=== PATIENT | female | born 1960 | race Caucasian/White ===

== ENCOUNTER → 2023-08-15 16:47 | Outpatient (REF) | payer BC, SELFPAY | LOC: HWWDC 16:47 | PROVIDERS: ATTENDING PHYSICIAN Family Medicine | DX: Z12.31 Encounter for screening mammogram for malignant neoplasm of breast (principal) | CPT/HCPCS: 77063; 77067 ==

== ENCOUNTER 2023-08-21 10:10 | Emergency (ER) | payer BC, SELFPAY ==
[2023-08-21 10:18] VITALS: BP 123/87
--- NOTE | 2023-08-21 15:00 | ED.GENMED ---
History of Present Illness
General
Chief Complaint: Back Pain
Source: patient and spouse
Time Seen by Provider: 08/21/23 10:58
Travel History
Have you had any contact with someone who has COVID-19?: No
Do you have any symptoms of coronavirus? Fever > 100 degrees, chills, cough, shortness of breath, sore throat, loss of taste or smell, muscle aches, or headache?: No
History of Present Illness
History of Present Illness:
This is a 63yo male who present with persistent low back pain. Patient has had lumbar fusions in the past she was told that the future will become more unstable. Patient states she has had pain in the upper buttocks down the top of her right leg.
the pt did have an epidural by DR Damon and is scheduled for an MR on the . She reports that her pain medicine really has not touched her pain. She has been a little less mobile. In addition she complains of some swelling in both legs. She
reports mild leg redness worse on the left. No numbness or tingling. No incontinence. No fevers. a few weeks back she did have a medrol dose pack and it seemed to help briefly
Past History
Past History
ED Past Medical History: Hypercholesterolemia, Hypothyroidism, Other (Migraine headaches, cervical and lumbar DJD. 'skin disorder') and Other (chronic low back and R hip pain)
ED Past Surgical History: (X3), Orthopedic (Cervical fusion, lumbar laminectomy) and Other ('Sushil surgery 2017)
Social History
Tobacco: Non-smoker
Alcohol: None
Drug: None
Personal:
Living: with family
Employment: Employed
Family History
Family History: Other (Reviewed and Noncontributory )
Phy Exam
Physical Exam
Physical Exam:
CONSTITUTIONAL Patient alert and oriented to person, place and time. Well-appearing. Vital signs reviewed.
HEAD atraumatic, normocephalic.
EYES eyelids normal to inspection, Extraocular muscles intact, Conjunctiva normal, Sclera normal.
NECK normal range of motion, Trachea midline, no jugular venous distention.
RESPIRATORY CHEST No respiratory distress noted, Chest expansion equal
BACK normal inspection, healed midline lower lumbar scar. moderate TTP about lumbar spine
UPPER EXTREMITY range of motion normal, Motor strength normal, no cyanosis, no edema.
LOWER EXTREMITY range of motion normal, Motor strength normal, no cyanosis, mild bilateral edema noted. No warmth noted to the anterior left lower extremity. Dorsalis pedis pulses are normal and bounding bilaterally
NEURO Speech normal, No focal motor deficits, Sean coma scale 15, Memory normal, Cranial Nerves intact to screening exam.
SKIN skin warm, dry, and normal in color.
PSYCHIATRIC patient oriented to person place and time, Normal affect.
Course
Orders/Labs/Results
Orders:
Orders
08/21/23 11:42
CT Lumbar Spine W/o Iv Contras Urgent
Comment:
Reason For Exam: severe low back pain, h/o lower lumbar fusion
US Periph Venous LOWER Ext Reagan Urgent
Comment:
Reason For Exam: edema, r/o DVT, immobile
08/21/23 14:59
Cephalexin Monohydrate [Keflex] 500 mg PO NOW STA
Prednisone [Deltasone] 50 mg PO NOW STA
Vital Signs
Initial and Last Documented VS:
Initial Vital Signs
Temp Pulse Resp BP Pulse Ox
98.2 F 83 16 123/87 98
08/21/23 10:18 08/21/23 10:18 08/21/23 10:18 08/21/23 10:18 08/21/23 10:18
Last Documented Vital Signs
Temp Pulse Resp BP Pulse Ox
98.2 F 83 16 123/87 98
08/21/23 10:18 08/21/23 10:18 08/21/23 10:18 08/21/23 10:18 08/21/23 10:18
MDM/Problems Addressed
MDM/Problems Addressed:
Low back pain, lower extremity edema, possible cellulitis.
*Radiology
Radiology exam reviewed: radiology read reviewed
*Pulse Oximetry
Patient hypoxic: no
*Critical Care Note
Total Time (30-74mins, 75-104mins- exclusive of procedures): Not Applicable
Data Reviewed
Source: patient and spouse
Prescriptions/Medications Considered But Not Given:
Consider pain control but patient states that pain is at baseline
Patient Management
Escalation/DeEscalation of care consider admission/obs:
63-year-old female with history of chronic low back pain. Above her stabilization procedure, she does have significant degenerative changes of her low back including obliteration of the right lateral aspect of the disc base in the upper lumbar
region. Lower extremities edematous but have normal bilateral dorsalis pedis pulses no concern for compromise. She does have redness to left lower extremity question cellulitis versus just related to edema. Will cover with antibiotics. Also
trial course of steroids and refer to surgeon. No focal neurologic deficits
ED Attending Note
-
Portions of this chart may have been created with voice recognition software.� Occasional wrong word or��sound alike� substitutions may have occurred due to the inherent limitations of voice recognition software.
Discharge Plan
Departure
Patient Disposition: Home (Routine Discharge)
Date of Disposition: 08/21/23
Time of Disposition: 15:00
Patient with high blood pressure during this ER visit?: No
Discharge Problem:
Back pain, Edema
Instructions: Low Back Pain (DC), Swelling, Radiculopathy (DC)
Prescriptions:
New
cephalexin 500 mg capsule
500 mg PO TID 7 Days Qty: 21 0RF
prednisone 10 mg Tablet
See Rx Instructions .ROUTE .COMPLEX Qty: 45 0RF
Rx Instructions:
Take By Mouth:
50 mg daily x3 days, 40 mg daily x3 days,
30 mg daily x3 days, 20 mg daily x3 days,
10 mg daily x3 days
No Action
levothyroxine 50 MCG tablet
50 mcg PO DAILY
diazepam 5 MG tablet
5 mg PO HS
oxycodone 10 MG tablet
10 mg PO BID
rizatriptan [Maxalt] 10 MG tablet
10 mg PO ONCE PRN (Reason: headache) Qty: 20 0RF
Rx Instructions:
May repeat x one dose after 2 hours if symptoms persist.
lactobacillus comb no.10 [Probiotic] 1 EACH capsule
1 ea PO DAILY
Referrals:
Keo Gimenez DO [Family Provider] -
Activity Restrictions/Additional Instructions:
Please see your surgeon in the next. Return for motor weakness, numbness, bladder or bowel incontinence, fevers, or any other concerns. Please see your doctor in follow-up next 2 to 3 days. Please ice and elevate them when you can.
Interventions
Interventions:
*Risk Screen - Suicide Last Done: 08/21/23 11:05
*General Assessment Last Done: 08/21/23 10:58
*Neglect/Abuse Screening Last Done: 08/21/23 10:58
ED- Fall Risk Assessment Last Done: 08/21/23 11:05
*ED COVID-19 Vaccine History Last Done: 08/21/23 10:58
ED-Musculoskeletal Assessment Last Done: 08/21/23 11:05
Discharge Date and Time
Print Language: NIUEAN
[2023-08-21] MEDS: KEFLEX 500 MG PO (15:04)
[2023-08-21] MEDS: DELTASONE 50 MG PO (15:04)
== END 2023-08-21 15:20 | disposition home or self-care (01) ==
LOC: EMR 10:10
PROVIDERS: EMERGENCY PHYSICIAN Emergency Medicine; FAMILY PHYSICIAN Family Medicine
DX: M54.50 Low back pain, unspecified (principal); G89.29 Other chronic pain; R60.0 Localized edema; Y83.8 Other surgical procedures as the cause of abnormal reaction of the patient, or of later complication, without mention of misadventure at the time of the procedure
CPT/HCPCS: 99284; 72131; 93970

== ENCOUNTER → 2023-08-28 10:54 | Outpatient (REF) | payer BC, SELFPAY | LOC: PAVMRI 10:54 | PROVIDERS: ATTENDING PHYSICIAN Physician Assistant Surgical; FAMILY PHYSICIAN Family Medicine | DX: M54.16 Radiculopathy, lumbar region (principal) | CPT/HCPCS: 72158; A9575 ==

== ENCOUNTER 2023-10-04 19:34 | Emergency (ER) | payer BC, SELFPAY ==
[2023-10-04 19:44] VITALS: BP 134/76
--- NOTE | 2023-10-04 22:02 | ED.GENMED ---
History of Present Illness
General
Chief Complaint: Fall
Source: patient and spouse
Time Seen by Provider: 10/04/23 21:46
Travel History
Have you had any contact with someone who has COVID-19?: No
Do you have any symptoms of coronavirus? Fever > 100 degrees, chills, cough, shortness of breath, sore throat, loss of taste or smell, muscle aches, or headache?: No
History of Present Illness
History of Present Illness:
63-year-old female presents to the emergency room for evaluation after fall. Patient unfortunately has a foot drop. She also has recent knee replacement surgery. So when she lost her balance it was difficult for her to regain her balance. She
fell backward struck the back of her head. No loss of conscious. She heard a crack. Patient denies any focal weakness numbness or tingling. She does not have any vomiting. She does take any anticoagulants.
Past History
Past History
ED Past Medical History: Hypercholesterolemia, Hypothyroidism, Other (Migraine headaches, cervical and lumbar DJD. 'skin disorder') and Other (chronic low back and R hip pain)
ED Past Surgical History: (X3), Orthopedic (Cervical fusion, lumbar laminectomy) and Other ('Sushil surgery 2017)
Social History
Tobacco: Non-smoker
Alcohol: None
Drug: None
Personal:
Living: with family
Employment: Employed
Family History
Family History: Other (Reviewed and Noncontributory )
Phy Exam
Physical Exam
Physical Exam:
General: Awake, Alert, Oriented X3. No acute distress.
Vitals: unremarkable
Head: Left temporoparietal contusion
Eyes: Pupils equal, EOMI
Throat: Airway intact, no exudates
Neck: Trachea midline
Lungs: Clear and equal b/l
Heart: Regular rate, no murmurs
Abd: Soft, Nontender, No pulsatile mass
Neuro: Cranial nerves intact, muscle strength equal bilaterally, cerebellar exam normal
Skin: Warm, dry, no rash
Extremities: pulses equal b/l, no edema
Course
Orders/Labs/Results
Orders:
Orders
10/04/23 19:[address] [CT Head W/o Iv Contrast] Urgent
Comment:
Reason For Exam: fall with head strike
Vital Signs
Initial and Last Documented VS:
Initial Vital Signs
Temp Pulse Resp BP Pulse Ox
98.6 F 87 16 134/76 99
10/04/23 19:44 10/04/23 19:44 10/04/23 19:44 10/04/23 19:44 10/04/23 19:44
Last Documented Vital Signs
Temp Pulse Resp BP Pulse Ox
98.6 F 87 16 134/76 99
10/04/23 19:44 10/04/23 19:44 10/04/23 19:44 10/04/23 19:44 10/04/23 19:44
MDM/Problems Addressed
Differential Diagnosis Includes:
Contusion, subdural, subarachnoid
MDM/Problems Addressed:
Head CT shows no acute abnormalities. Patient stable for discharge home with head injury instructions.
*Radiology
Radiology exam reviewed: radiology read reviewed
*Pulse Oximetry
Patient hypoxic: no
*Critical Care Note
Total Time (30-74mins, 75-104mins- exclusive of procedures): Not Applicable
ED Attending Note
-
Portions of this chart may have been created with voice recognition software.� Occasional wrong word or��sound alike� substitutions may have occurred due to the inherent limitations of voice recognition software.
Discharge Plan
Departure
Patient Disposition: Home (Routine Discharge)
Date of Disposition: 10/04/23
Time of Disposition: 22:02
Patient with high blood pressure during this ER visit?: No
Condition: Good
Discharge Problem:
Head injury, Contusion of scalp
Instructions: Head Injury in Adults (DC)
Prescriptions:
No Action
levothyroxine 50 MCG tablet
50 mcg PO DAILY
diazepam 5 MG tablet
5 mg PO HS
oxycodone 10 MG tablet
10 mg PO BID
rizatriptan [Maxalt] 10 MG tablet
10 mg PO ONCE PRN (Reason: headache) Qty: 20 0RF
Rx Instructions:
May repeat x one dose after 2 hours if symptoms persist.
lactobacillus comb no.10 [Probiotic] 1 EACH capsule
1 ea PO DAILY
cephalexin 500 mg capsule
500 mg PO TID 7 Days Qty: 21 0RF
prednisone 10 mg Tablet
See Rx Instructions .ROUTE .COMPLEX Qty: 45 0RF
Rx Instructions:
Take By Mouth:
50 mg daily x3 days, 40 mg daily x3 days,
30 mg daily x3 days, 20 mg daily x3 days,
10 mg daily x3 days
Referrals:
Keo Gimenez DO [Family Provider] -
Interventions
Interventions:
*General Assessment Last Done: 10/04/23 19:44
ED- Fall Risk Assessment Last Done: 10/04/23 21:56
*Nursing Disposition Last Done: 10/04/23 22:11
ED-Musculoskeletal Assessment Last Done: 10/04/23 21:56
ED- Neurological Assessment Last Done: 10/04/23 21:56
ED-Skin Assessment Last Done: 10/04/23 21:56
Discharge Date and Time
Print Language: JORDANIAN
== END 2023-10-04 22:12 | disposition home or self-care (01) ==
LOC: EMR 19:34
PROVIDERS: EMERGENCY PHYSICIAN Emergency Medicine; FAMILY PHYSICIAN Family Medicine
DX: S00.03XA Contusion of scalp, initial encounter (principal); S09.90XA Unspecified injury of head, initial encounter; W19.XXXA Unspecified fall, initial encounter
CPT/HCPCS: 99284; 70450

== ENCOUNTER → 2023-12-15 15:22 | Outpatient (REF) | payer BC, SELFPAY | LOC: HWRAD 15:22 | PROVIDERS: ATTENDING PHYSICIAN Neurological Surgery; FAMILY PHYSICIAN Family Medicine; REFERRING PHYSICIAN Psychiatry & Neurology Neurology | DX: Z98.1 Arthrodesis status (principal) | CPT/HCPCS: 72100 ==

== ENCOUNTER → 2024-01-23 08:55 | Outpatient (REF) | payer BC, SELFPAY | LOC: RAD 08:55 | PROVIDERS: ATTENDING PHYSICIAN Family Medicine | DX: E21.3 Hyperparathyroidism, unspecified (principal) | CPT/HCPCS: 78071; A9500 ==

== ENCOUNTER → 2024-02-20 10:48 | Outpatient (REF) | payer BC, SELFPAY | LOC: HWRAD 10:48 | PROVIDERS: ATTENDING PHYSICIAN Physician Assistant; FAMILY PHYSICIAN Family Medicine | DX: Z98.1 Arthrodesis status (principal) | CPT/HCPCS: 72100 ==

== ENCOUNTER → 2024-03-05 09:36 | Outpatient (REF) | payer BC, MEDICARE, SELFPAY | LOC: HWRAD 09:36 | PROVIDERS: ATTENDING PHYSICIAN Surgery; FAMILY PHYSICIAN Family Medicine | DX: E21.0 Primary hyperparathyroidism (principal) | CPT/HCPCS: 77080 ==

== ENCOUNTER → 2024-03-18 14:10 | Outpatient (REF) | payer BC, MEDICARE, SELFPAY | LOC: HWRAD 14:10 | PROVIDERS: ATTENDING PHYSICIAN Physician Assistant; FAMILY PHYSICIAN Family Medicine; REFERRING PHYSICIAN Neurological Surgery | DX: M47.817 Spondylosis without myelopathy or radiculopathy, lumbosacral region (principal) | CPT/HCPCS: 72131 ==

== ENCOUNTER 2024-03-19 06:07 | Day surgery (SDC) | payer BC, MEDICARE, SELFPAY ==
[2024-02-27 08:40] VITALS: BMI 32.7
[2024-02-27 09:15] LABS: INR 0.96; PT 12.6 Sec (11.4-14.6)
[2024-02-27 09:16] LABS: APTT 33.7 Sec (23.4-35.0)
[2024-02-27 09:36] LABS: Hematocrit 34.5 % (37.0-47.0); Hemoglobin 10.3 g/dL (12.0-16.0); Mean Corp Hgb Conc. 29.9 g/dL (33.0-37.0); Mean Corpuscular Hgb 23.5 pg (27.0-31.0); Mean Corpuscular Volume 78.8 fL (81.0-99.0); Mean Platelet Volume 10.4 fL (7.4-10.4); Platelet Count 342 10^3/uL (130-400); Red Blood Cell Count 4.38 10^6/uL (4.20-5.40); White Blood Cell Count 5.9 10^3/uL (4.8-10.8)
[2024-02-27 09:42] LABS: ALT (SGPT) 21 U/L (0-35); AST (SGOT) 30 U/L (14-36); Albumin 4.2 g/dl (3.5-5.0); Alkaline Phosphatase 165 U/L (38-126); Blood Urea Nitrogen 16 mg/dl (7-17); Carbon Dioxide 27 mmol/L (22-30); Chloride 103 mmol/L (98-107); Estimated Creatinine Clearance 104 ml/min; Glucose 89 mg/dl (70-99); Potassium 4.2 mmol/L (3.5-5.1); Sodium 142 mmol/L (135-145); Total Bilirubin 0.5 mg/dl (0.2-1.3); Total Protein 6.9 g/dl (6.3-8.2); eGFR > 60.00
[2024-03-19] VITALS (11 sets, daily range): BP systolic 99–140; BP diastolic 56–71; BMI 32.7
[2024-03-19] MEDS: TYLENOL 1000 MG PO (06:33)
[2024-03-19] MEDS: NEURONTIN 300 MG PO (06:33)
[2024-03-19] MEDS: HEPARIN 5000 UNITS SC (06:36)
--- NOTE | 2024-03-19 09:09 | OR.RPT ---
Operative Report
Operative Report
Date of Operation: March 19, 2024
Preoperative Diagnosis: �Parathyroid hyperparathyroidism - E210
Postoperative Diagnosis: Same
Surgeon: Roshan Arrington M.D.
Operation: Minimally Invasive Right Superior Parathyroidectomy - [id number]
Anesthesia: GET
Estimated Blood Loss: 2 cc
Drains: None
Specimen: �Right superior neck nodule, rule out parathyroid adenoma
Complications: �None
Procedure:
The patient was taken to the operating room and placed in the usual supine position. After adequate general endotracheal anesthesia was established, the patient's neck was extended, prepped, and draped in the typical sterile fashion. A 4 cm
transcervical incision was made two fingerbreadths above the sternal notch. The skin incision was made with the #15 blade, and this was taken through the skin into the subcutaneous tissue. The underlying platysma muscle was divided, and subplatysmal
flaps were created superiorly to the thyroid cartilage and inferiorly to the sternal notch. Strap muscles were identified and at the midline.
Attention was turned to the patient's right side of the neck. The right thyroid lobe was mobilized medially. During this process, the right recurrent laryngeal nerve was identified and preserved throughout the surgery. The right upper neck nodule
was identified and noted to be enlarged, excised, and sent to the pathology department, which showed a hypercellular parathyroid gland. The intraoperative PTH levels normalized.
After obtaining adequate hemostasis, the strap muscles were reapproximated with #3-0 Vicryl in a running fashion. The platysma muscle was reapproximated with #3-0 Vicryl in an interrupted fashion, and the skin was approximated with #4-0 Monocryl in
a running subcuticular fashion. The Steri-Strips and sterile dressings were placed. The patient tolerated the procedure well. The final instrument, needle, and sponge counts were correct. The patient was extubated and transferred to the PACU.
[2024-03-19 09:21] LABS: Turbo PTH 17.7 pg/ml (13.6-85.8)
[2024-03-19] MEDS: DILAUDID 0.25 MG IV ×2 (10:17→10:26)
[2024-03-19] MEDS: ROXICODONE 5 MG PO (11:27)
== END 2024-03-19 11:37 | disposition home or self-care (01) ==
LOC: SDS 06:07
PROVIDERS: ATTENDING PHYSICIAN Surgery; FAMILY PHYSICIAN Family Medicine
DX: E21.0 Primary hyperparathyroidism (principal)
CPT/HCPCS: 60500; 88305; 88332; 36415; 80053; 83970; 85027; 85610; 85730; 88331; 93005; C1776

== ENCOUNTER → 2024-06-20 06:38 | Outpatient (REF) | payer BC, MEDICARE, SELFPAY | LOC: PAVMRI 06:38 | PROVIDERS: ATTENDING PHYSICIAN Physician Assistant; FAMILY PHYSICIAN Family Medicine | DX: M47.816 Spondylosis without myelopathy or radiculopathy, lumbar region (principal); M54.16 Radiculopathy, lumbar region; M47.9 Spondylosis, unspecified; Z98.1 Arthrodesis status | CPT/HCPCS: 72148 ==

== ENCOUNTER → 2024-10-01 08:41 | Outpatient (REF) | payer BC, MEDICARE, SELFPAY | LOC: HWRAD 08:41 | PROVIDERS: ATTENDING PHYSICIAN Nurse Practitioner; FAMILY PHYSICIAN Family Medicine; REFERRING PHYSICIAN Internal Medicine Rheumatology | DX: M54.16 Radiculopathy, lumbar region (principal); Z98.1 Arthrodesis status; M25.50 Pain in unspecified joint; M79.641 Pain in right hand; M79.642 Pain in left hand | CPT/HCPCS: 72131; 73110; 73130 ==